=== PATIENT | female | born 1985 | race Caucasian/White ===

== ENCOUNTER 2021-06-27 03:21 | Day surgery (SDC) | payer OTHER, SELFPAY ==
[2021-06-19 15:45] VITALS: BMI 54.8
--- NOTE | 2021-06-19 15:54 | PC.NURSE ---
Report to the Outpatient Waiting Room, entrance under the green pavilion located off [facility], at time 1030 on date 06/27/21. OR Time: 1230. - You and your visitor will be asked a series of questions to screen for COVID 19 for your protection. - A mask is required within the hospital. - Only one visitor is allowed at this time. Patient visitors will be guided where to wait when not with patient. Preoperative COVID Testing Requirements: No COVID Test needed if: (proof is required; if not received patient will have Rapid Test prior to entry) - Patient has received COVID Vaccine at least 14 days prior to procedure date or - Patient has positive COVID test result within last 90 days of surgery date. COVID Test needed if above criteria is not met If not COVID vaccinated a COVID test must be conducted within 72 hours of surgery and patient is asked to isolate self from time of testing until procedure. You will go to the [facility] for your COVID testing. The [facility] is located at the corner of [address] [facility]. You will only be called if COVID results are positive and your surgeon may reschedule your elective surgery date. Patients may have clear liquids (water, carbonated beverages, clear teas, apple juice) until 3 hours prior to surgery with a maximum of 20 ounces. - No food from midnight until time of surgery - Infants may have breast milk until 4 hours before surgery, infant formula 6 hours prior to surgery. - Children will be allowed to drink immediately following surgery. If applicable, please bring a bottle or sippy cup to assist with drinking. Juice, water, soda, and popsicles are readily available. For infants on formula, please bring formula the day of surgery. Pacifiers are allowed. Take the following medications with a SIP of water the morning of surgery: ESCITALOPRAM, LABETALOL Medications to discontinue per physician: N/A Date to take last dose: N/A Please no make-up, nail malay, hairspray, perfume, deodorant, or body powder the day of surgery. No jewelry (including any body piercings) or valuables the day of surgery, leave them at home. Please take a shower or bath the night before, or the morning of, surgery with an antibacterial soap. Wear comfortable, loose fitting clothing. Children are encouraged to wear pajamas. - Jewelry must be removed prior to entering the operating room. Rings and piercings that are not removed may be cut off. - The hospital will not accept responsibility for valuables. - Please leave all valuables, including medications, at home the day of surgery. If you are going home after surgery, a licensed patient transportation driver must drive you home. - NO public transportation without another adult. - We recommend that an adult stay with you for 24 hours following discharge. - We also recommend that you do not drive, make important decision, drink alcoholic beverages, or take any drugs that were not prescribed by your health care provider for at least 24 hours after your discharge time. For Pediatric surgeries, we recommend two adults accompany the child home (only one inside the building at this time). Follow any additional instructions given to you from your surgeon. Telephone instructions given to TWIN MATTA and asked if any additional questions and then verbalized understanding. Patient advised to call surgeon office or pre surgery nurse liaison [phone] if any additional questions.
--- NOTE | 2021-06-24 12:54 | PM.IMHP ---
H&P: HPI History of Present Illness Date/Time: 06/24/21 12:54 36-year-old female admitted for hysteroscopy/dilatation curettage. She has had a long history of heavy excessive bleeding when trying to conceive. Cells IV painful bleeding pretty much every day and spotting on other days. Risks and benefits reviewed including but not exclusive of , aspiration pneumonia, bleeding, transfusion, perforation injury to bowel, bladder, ureters, or other internal organs with need for open laparotomy. She received the ACOG handout entitled hysteroscopy as well as dilatation curettage. She had all questions answered and asked to proceed Chief Complaint: Excessive heavy bleeding Review of Systems Review of Systems: All systems reviewed & are unremarkable except as noted in HPI and below PMFSH Family History Family History Mother Patient's mother is in good health Father Patient's father is in good health Social History Social History Smoking status: Never smoker Alcohol intake: never Substance use: never Substance use type: does not use Living arrangements: with family Spiritual care concerns: No Meds Home Medications and Allergies Home Medications Medication Instructions Recorded Confirmed Type escitalopram oxalate 20 mg PO BID 06/19/21 06/19/21 History hydrochlorothiazide 25 mg PO DAILY 06/19/21 06/19/21 History labetalol 300 mg PO BID 06/19/21 06/19/21 History rosuvastatin 20 mg PO DAILY 06/19/21 06/19/21 History Allergies Allergy/AdvReac Type Severity Reaction Status Date / Time No Known Allergies Allergy Verified 06/19/21 15:42 Exam Const: General: no acute distress Eyes: General: appearance normal, both eyes and all related structures Neck: Neck: supple and no JVD Thyroid: thyroid normal Resp: Effort & Inspection: normal respiratory effort Auscultation: clear to auscultation bilaterally Cardio: Rate: regular rate Rhythm: regular rhythm GI: Inspection: non-distended GI Palp: Yes Soft to palpation, No Tenderness to palpation present (GI) and No Guarding due to palpation present (GI) Auscultation: normal bowel sounds : External Female Exam: normal external appearance Speculum Exam - Vagina: normal appearance of the vagina Speculum Exam - Cervix: normal appearance of the cervix Bimanual exam- vagina & uterus: enlarged Bimanual Exam- Adnexa, other: normal adnexae Skin: General skin exam: no rashes or lesions noted Extrem: General: normal to inspection and no edema Psych: Mental Status: mental status grossly normal Affect: normal affect Assessment and Plan Additional Plan Impression: Bleeding refractory to medical therapy Plan: Hysteroscopy/dilatation curettage
--- NOTE | 2021-06-27 07:13 | WPDHPUPDATE1 ---
History and Physical Update Update Date/Time: 06/27/21 07:13 History and Physical has been reviewed, including an updated exam of the patient. There are NO changes in the patient's condition. Risks, benefits, and alternatives have been discussed and questions answered. Patient agrees to proceed with procedure.
[2021-06-27] MEDS: ACETAMINOPHEN 500 MG TABLET 1000 MG PO (11:04)
--- NOTE | 2021-06-27 11:17 | WPDANESEPPF ---
Anes - Initial Pre Proc Eval Procedure: Operation Date: 06/27/21 12:30 Proposed Procedures p Hysteroscopy Dilation and Curettage - Roland Law MD Date/Time: 06/27/21 11:17 Surgeon: Roland Law MD Pre Op Diagnosis: irregular bleeding Patient Data Age: 36 Gender: F Height: 1.68 m Weight: 154.22 kg Allergies Allergy/AdvReac Type Severity Reaction Status Date / Time No Known Allergies Allergy Verified 06/27/21 10:42 Home Medications Medication Instructions Recorded Confirmed Type escitalopram oxalate 20 mg PO BID 06/19/21 06/27/21 History hydrochlorothiazide 25 mg PO DAILY 06/19/21 06/27/21 History labetalol 300 mg PO BID 06/19/21 06/27/21 History rosuvastatin 20 mg PO DAILY 06/19/21 06/27/21 History hydrocodone-acetaminophen 1 tablet PO Q4H PRN #20 tablet 06/27/21 Rx Patient hx anesthesia problems: none Family hx anesthesia problems: none Results Review: All pre-operative results and documents have been reviewed as part of the pre-operative evaluation. [facility] Past Medical History Medical History (Updated 06/27/21 @ 11:18 by Lavell Nguyen MD) Abnormal uterine bleeding Anxiety HTN (hypertension) Hyperlipidemia Morbid obesity with BMI of 50.0-59.9, adult Family History Family History Mother Patient's mother is in good health Father Patient's father is in good health Social History Social History Smoking status: Never smoker Alcohol intake: never Substance use: never Substance use type: does not use Living arrangements: with family Spiritual care concerns: No Anes - Eval Final PreProcedure Day of Procedure 06/27/21 11:17 Patient weight: morbidly obese Heart: regular rate and rhythm Lungs: clear to auscultation and normal air movement Airway: Mallampati scale class II Neurological: alert and oriented Last oral intake: >/= 8 hours ASA classification: III Emergent: no Anesthetic plan: proceed Anesthesia type and monitoring: general GIVS and LMA Results Review: All pre-operative results and documents have been reviewed as part of the pre-operative evaluation. Informed Consent: The patient's anesthetic plan and its attendant risks and benefits were discussed with the patient/family/POA. Questions were solicited and answers provided to the satisfaction of the patient/family/POA.
[2021-06-27] MEDS: LACTATED RINGERS 1,000 ML 30 ML IV CONT ×2 (11:20→14:12)
[2021-06-27 11:22] LABS: Hematocrit 38.9 % (37.0-47.0); Hemoglobin 12.8 g/dL (12.0-15.0)
[2021-06-27 11:31] LABS: Anion Gap 10 mmol/L (8-16); Blood Urea Nitrogen 15 mg/dL (7-17); Calcium 9.2 mg/dL (8.4-10.2); Carbon Dioxide 29 mmol/L (22-30); Chloride 100 mmol/L (98-107); Estimated CRCL calculation 116 ml/min; Estimated Glomerular Filt Rate > 60; Glucose 102 mg/dL (65-110); Potassium 4.1 mmol/L (3.4-5.0); Sodium 139 mmol/L (137-145)
[2021-06-27 11:45] VITALS: BP 125/70; PULSE 88; TEMP 36.5; O2SAT 95
[2021-06-27 13:37] VITALS: BP 163/80; PULSE 85; RESP 18; O2SAT 93
--- NOTE | 2021-06-27 13:38 | W.PM.PROC2 ---
Procedure Note - Detailed Date of Procedure 06/27/21 Pre-op Diagnosis irregular bleeding Post-op Diagnosis other (Multiple uterine polyps) Procedure Performed Hysteroscopy/dilatation curettage/polypectomy Surgeon Roland Law MD Anesthesia MAC and local Indications This is a 36-year-old female with a thickened endometrium and irregular heavy bleeding refractory to medical therapy Findings Multiple uterine 5 polyps were seen. The head fairly bland and benign appearance. Description of Procedure The patient was prepped draped in sterile fashion placed in dorsal lithotomy position. Under excellent IV sedation weighted speculum placed in posterior fornix vagina. Anterior lip of the cervix grasped with single-tooth tenaculum and the uterus sounded to 9cm. Serial dilatation with fragmented dilators were performed followed by passage of 5mm visualizing hysteroscope using normal saline as visualizing medium. Several polyps were seen. Passing the polyp forceps these were removed piecemeal. The uterus was then scraped over the entire 360? until good grating sound was heard. When no further tissue removed the instruments were removed. All sponge, needle, instrument counts were correct. There were no immediate complication was Estimated Blood Loss 5 Drains No Packing No Pathology yes Complications No immediate complications Condition stable Disposition PACU
[2021-06-27] MEDS: fentaNYL CITRATE INJ (*CRX) 100 MCG/2 ML VIAL 25 MCG IV PUSH ×4 (13:43→13:59)
[2021-06-27] MEDS: KETOROLAC 30 MG/ML VIAL (*BKC) IV PUSH (13:56)
[2021-06-27 14:05] VITALS: BP 150/72; PULSE 86; RESP 18; O2SAT 93
[2021-06-27] MEDS: oxyCODONE HCL (*CRX) 5 MG TAB IR PO (14:23)
[2021-06-27 14:35] VITALS: BP 139/66; PULSE 72; RESP 18
[2021-06-27 15:05] VITALS: BP 146/72; PULSE 72; RESP 16
== END 2021-06-27 15:10 | disposition home or self-care (01) ==
PROVIDERS: PCP Physician Assistant; Visit Provider Obstetrics & Gynecology
PROC: 0U5B8ZZ Destruction of Endometrium, Via Natural or Artificial Opening Endoscopic (ICD-10-PCS; CPT 58563; principal; 2021-06-27 12:30)
DX: N85.02 Endometrial intraepithelial neoplasia [EIN] (principal); I10 Essential (primary) hypertension; E78.5 Hyperlipidemia, unspecified; F41.9 Anxiety disorder, unspecified; E66.01 Morbid (severe) obesity due to excess calories; Z68.43 Body mass index [BMI] 50.0-59.9, adult
CPT/HCPCS: 58558; 36415; 80048; 85014; 85018; 88305; A9270; J1885; J2250; J2704; J3010; J7030; J7120

== ENCOUNTER 2021-07-08 11:21 | Outpatient (CLI) | payer OTHER, SELFPAY ==
--- NOTE | 2021-07-08 11:30 | ECG_ITS ---
Measurements Intervals [place] Rate: 75 P: 14 ME: 139 QRS: 40 QRSD: 99 T: 40 QT: 385 QTc: 432 Interpretive Statements SINUS RHYTHM BORDERLINE T WAVE ABNORMALITY- ANTERIOR LEADS BASELINE ARTIFACT- I, III, AVR, AVL, AVF BORDERLINE ECG Electronically Signed On 07-08-2021 12:49:12 SALICYLIC ACID BLENDER by Destin Arizmendi D.O.
[2021-07-08 11:55] LABS: Basophils Percent Auto 0.4 % (0.2-1.2); Eosinophils Absolute Auto 0.3 K/mm3 (0-0.3); Eosinophils Percent Auto 3.2 % (0-4.4); Hematocrit 38.9 % (37.0-47.0); Hemoglobin 12.7 g/dL (12.0-15.0); Immature Granulocyte Absolute 0.16 K/mm3 (0.00-0.031); Immature Granulocyte Percent A 1.7 % (0-0.5); Lymphocytes Absolute Auto 2.18 K/mm3 (0.9-3.2); Lymphocytes Percent Auto 23.7 % (18.3-44.2); Mean Corpuscular HGB Conc 32.6 g/dl (32-36); Mean Corpuscular Hemoglobin 30.8 pg (26-34); Mean Corpuscular Volume 94.4 fl (80-100); Mean Platelet Volume 9.2 fl (7.4-10.4); Monocytes Absolute Auto 0.4 K/mm3 (0.1-0.6); Monocytes Percent Auto 4.4 % (2.6-8.5); Neutrophils Absolute Auto 6.1 K/mm3 (1.3-6.7); Neutrophils Percent Auto 66.6 % (45.5-73.1); Platelet Count Result 258 k/mm3 (150-375); Red Blood Count 4.12 M/mm3 (4.2-5.4); Red Cell Distribution Width 12.9 % (11.5-14.5); White Blood Count 9.2 K/mm3 (4.5-10.0)
== END 2021-07-08 11:22 | disposition home or self-care (01) ==
LOC: ANHSURGERY 11:25
PROVIDERS: PCP Physician Assistant; Visit Provider Obstetrics & Gynecology
DX: Z01.818 Encounter for other preprocedural examination (principal); N93.9 Abnormal uterine and vaginal bleeding, unspecified
CPT/HCPCS: 36415; 85025; 86850; 86900; 86901; 93005

== ENCOUNTER 2021-07-15 01:25 | Day surgery (SDC) | payer OTHER, SELFPAY ==
[2021-07-07 14:39] VITALS: BMI 54.9
--- NOTE | 2021-07-07 14:50 | PC.NURSE ---
Report to the Outpatient Waiting Room, entrance under the green pavilion located off [facility], at time 10:00 on date 07/15/21. OR Time: 12:00. - You and your visitor will be asked a series of questions to screen for COVID 19 for your protection. - A mask is required within the hospital. - Only one visitor is allowed at this time. Patient visitors will be guided where to wait when not with patient. Preoperative COVID Testing Requirements: No COVID Test needed if: (proof is required; if not received patient will have Rapid Test prior to entry) - Patient has received COVID Vaccine at least 14 days prior to procedure date or - Patient has positive COVID test result within last 90 days of surgery date. COVID Test needed if above criteria is not met If not COVID vaccinated a COVID test must be conducted within 72 hours of surgery and patient is asked to isolate self from time of testing until procedure. You will go to the [facility] for your COVID testing. The [facility] is located at the corner of [address] [facility]. You will only be called if COVID results are positive and your surgeon may reschedule your elective surgery date. Patients may have clear liquids (water, carbonated beverages, clear teas, apple juice) until 3 hours prior to surgery with a maximum of 20 ounces. - No food from midnight until time of surgery - Infants may have breast milk until 4 hours before surgery, infant formula 6 hours prior to surgery. - Children will be allowed to drink immediately following surgery. If applicable, please bring a bottle or sippy cup to assist with drinking. Juice, water, soda, and popsicles are readily available. For infants on formula, please bring formula the day of surgery. Pacifiers are allowed. Take the following medications with a SIP of water the morning of surgery: LABETALOL, ESCITALOPRAM Medications to discontinue per physician: N/A Date to take last dose: N/A Please no make-up, nail korean, hairspray, perfume, deodorant, or body powder the day of surgery. No jewelry (including any body piercings) or valuables the day of surgery, leave them at home. Please take a shower or bath the night before, or the morning of, surgery with an antibacterial soap. Wear comfortable, loose fitting clothing. Children are encouraged to wear pajamas. - Jewelry must be removed prior to entering the operating room. Rings and piercings that are not removed may be cut off. - The hospital will not accept responsibility for valuables. - Please leave all valuables, including medications, at home the day of surgery. If you are going home after surgery, a licensed p d driver must drive you home. - NO public transportation without another adult. - We recommend that an adult stay with you for 24 hours following discharge. - We also recommend that you do not drive, make important decision, drink alcoholic beverages, or take any drugs that were not prescribed by your health care provider for at least 24 hours after your discharge time. For Pediatric surgeries, we recommend two adults accompany the child home (only one inside the building at this time). Follow any additional instructions given to you from your surgeon. Telephone instructions given to TWIN MATTA and asked if any additional questions and then verbalized understanding. Patient advised to call surgeon office or pre surgery nurse liaison [phone] if any additional questions.
--- NOTE | 2021-07-14 12:01 | PM.IMHP ---
H&P: HPI History of Present Illness Date/Time: 07/14/21 12:01 36-year-old 0 admitted for robotic hysterectomy and bilateral salpingectomy secondary to the excessive bleeding in a patient with complex atypical hyperplasia. She declined attempt at treatment with hormones. She understands this will make her permanently infertile. Risks and benefits of the procedure reviewed in full Chief Complaint: heavy bleeding and complex atypical hyperplasia of Review of Systems Review of Systems: All systems reviewed & are unremarkable except as noted in HPI and below PMFSH Past Medical History Medical History Abnormal uterine bleeding Anxiety HTN (hypertension) Hyperlipidemia Morbid obesity with BMI of 50.0-59.9, adult Family History Family History Mother Patient's mother is in good health Father Patient's father is in good health Social History Social History Smoking status: Never smoker Alcohol intake: never Substance use: never Substance use type: does not use Spiritual care concerns: No Meds Home Medications and Allergies Home Medications Medication Instructions Recorded Confirmed Type escitalopram oxalate 20 mg PO BID 06/19/21 07/07/21 History hydrochlorothiazide 25 mg PO DAILY 06/19/21 07/07/21 History labetalol 300 mg PO BID 06/19/21 07/07/21 History rosuvastatin 20 mg PO DAILY 06/19/21 07/07/21 History hydrocodone-acetaminophen 1 tablet PO Q4H PRN #20 tablet 06/27/21 07/07/21 Rx Allergies Allergy/AdvReac Type Severity Reaction Status Date / Time No Known Allergies Allergy Verified 07/07/21 14:38 Exam Const: General: no acute distress Eyes: General: appearance normal, both eyes and all related structures Neck: Neck: supple and no JVD Thyroid: thyroid normal Resp: Effort & Inspection: normal respiratory effort Auscultation: clear to auscultation bilaterally Cardio: Rate: regular rate Rhythm: regular rhythm GI: Inspection: non-distended GI Palp: Yes Soft to palpation, No Tenderness to palpation present (GI) and No Guarding due to palpation present (GI) Auscultation: normal bowel sounds : External Female Exam: normal external appearance Speculum Exam - Vagina: normal appearance of the vagina Speculum Exam - Cervix: normal appearance of the cervix Bimanual exam- vagina & uterus: enlarged Bimanual Exam- Adnexa, other: normal adnexae ( difficult secondary to large pannus) Skin: General skin exam: no rashes or lesions noted Extrem: General: normal to inspection and no edema Psych: Mental Status: mental status grossly normal Affect: normal affect Assessment and Plan Additional Plan impression: Complex atypical hyperplasia Plan: Total robotic hysterectomy and bilateral salpingectomy
[2021-07-15] VITALS (12 sets, daily range): BP systolic 106–154; BP diastolic 66–90; PULSE 72–95; RESP 16–23; TEMP 36.4; O2SAT 90–100
--- NOTE | ~2021-07-15 | CT_ITS ---
EXAMINATION: CTA chest PE protocol EXAM DATE: 07/16/2021 12:23 INDICATION: Pain with deep breathing, rule out PE. TECHNIQUE: Spiral CTA of the chest (pulmonary arteries) was performed with 100 cc Omnipaque 350 intr avenous contrast injection. Images were acquired during the pulmonary arterial phase. Coronal maxi mum intensity projection 3D-reconstructions were created by the technologist on dedicated workstation . Axial, coronal and sagittal reformatted images were reviewed. The dose-length product (DLP) for t his examination was 910.51 mGy-cm. The exposure was tailored according to patient size (auto mA exp osure control), and iterative reconstruction (ASIR) was used as additional dose reduction technique. There is no prior study for comparison. FINDINGS: Pulmonary arteries are well opacified and without intraluminal filling defects. No thora cic aortic dissection. There is multi segmental atelectasis in the dependent aspects of the right up per and lower lobes, segmental atelectasis in the left lower lobe. Can't exclude superimposed pneumon ia but the homogeneous enhancement and volume loss is consistent with atelectasis. There are no pleural or pericardial effusions. Tracheobronchial tree is patent. There is no media stinal, hilar or axillary lymphadenopathy. There is no pneumothorax. Heart normal in size. No e vidence of coronary arterial calcification. Steatosis There is thoracic spondylosis without osteob lastic or osteolytic lesions identified. IMPRESSION: Multi segmental right lung, segmental left lower lobe atelectasis. Superimposed pneumonia difficult to entirely exclude. Consider incentive spirometry. Hepatic steatosis. Reviewed, dictated and finalized at location A. SERVICE CLERK IMPRESSION: Multi segmental right lung, segmental left lower lobe atelectasis. Superimposed pneumonia difficult to entirely exclude. Consider incentive beba metry. Hepatic steatosis.
--- NOTE | 2021-07-15 06:58 | WPDHPUPDATE1 ---
History and Physical Update Update Date/Time: 07/15/21 06:58 History and Physical has been reviewed, including an updated exam of the patient. There are NO changes in the patient's condition. Risks, benefits, and alternatives have been discussed and questions answered. Patient agrees to proceed with procedure.
--- NOTE | 2021-07-15 10:55 | P.PNAN_ITS ---
Anes - Initial Pre Proc Eval Procedure: Operation Date: 07/15/21 12:00 Proposed Procedures p Robotic Assisted Total Vaginal Hysterectomy with Bilateral Salpingectomy - Roland Law MD Date/Time: 07/15/21 10:55 Surgeon: Roland Law MD Pre Op Diagnosis: Heavy Bleeding, Endometrial Complex Hyperplasia Patient Data Age: 36 Gender: F Height: 1.68 m Weight: 154.4 kg Allergies Allergy/AdvReac Type Severity Reaction Status Date / Time No Known Allergies Allergy Verified 07/07/21 14:38 Home Medications Medication Instructions Recorded Confirmed Type escitalopram oxalate 20 mg PO BID 06/19/21 07/07/21 History hydrochlorothiazide 25 mg PO DAILY 06/19/21 07/07/21 History labetalol 300 mg PO BID 06/19/21 07/07/21 History rosuvastatin 20 mg PO DAILY 06/19/21 07/07/21 History hydrocodone-acetaminophen 1 tablet PO Q4H PRN #20 tablet 06/27/21 07/07/21 Rx hydrocodone-acetaminophen 1 tablet PO Q4H PRN #30 tablet 07/15/21 Rx Patient hx anesthesia problems: none Family hx anesthesia problems: none Results Review: All pre-operative results and documents have been reviewed as part of the pre-operative evaluation. [facility] Past Medical History Medical History Abnormal uterine bleeding Anxiety HTN (hypertension) Hyperlipidemia Morbid obesity with BMI of 50.0-59.9, adult Family History Family History Mother Patient's mother is in good health Father Patient's father is in good health Social History Social History Smoking status: Never smoker Alcohol intake: never Substance use: never Substance use type: does not use Living arrangements: with family Spiritual care concerns: No Anes - Eval Final PreProcedure Day of Procedure 07/15/21 10:55 Patient weight: super morbidly obese Heart: regular rate and rhythm Lungs: clear to auscultation and normal air movement Airway: Mallampati scale class II Neurological: alert and oriented Last oral intake: >/= 8 hours ASA classification: III Emergent: no Anesthetic plan: proceed Anesthesia type and monitoring: general ETT and standard monitoring Results Review: All pre-operative results and documents have been reviewed as part of the pre-operative evaluation. Informed Consent: The patient's anesthetic plan and its attendant risks and benefits were discussed with the patient/family/POA. Questions were solicited and answers provided to the satisfaction of the patient/family/POA.
[2021-07-15] MEDS: LACTATED RINGERS 1,000 ML 30 ML IV CONT ×3 (11:00→15:07)
[2021-07-15] MEDS: ACETAMINOPHEN 500 MG TABLET 1000 MG PO (11:00)
[2021-07-15] MEDS: KETOROLAC 15 MG/ML VIAL (*BKC) IV PUSH (11:10)
[2021-07-15] MEDS: ceFAZolin 2 GM/D5W 50 ML 2 GM/50 ML BAG IVPB (11:58)
--- NOTE | 2021-07-15 13:06 | SUR.OPER ---
EBL 25ML
--- NOTE | 2021-07-15 13:08 | P.OP_ITS ---
Procedure Note - Detailed Date of Procedure 07/15/21 Pre-op Diagnosis Heavy Bleeding, Endometrial Complex Hyperplasia Post-op Diagnosis same Procedure Performed Robotic total vaginal hysterectomy and bilateral salpingectomy Surgeon Roland Law MD Anesthesia general Indications 36-year-old female with hysteroscopic i proven complex atypical hyperplasia and heavy bleeding Findings Heart shaped uterus. Polycystic ovaries. Small fallopian tubes. Description of Procedure The patient was prepped draped in the normal sterile fashion placed in the dorsal lithotomy position. Under excellent general trach anesthesia weighted speculum placed in posterior fornix vagina. Anterior lip of the cervix grasped with a single-tooth tenaculum. Uterus sounded to 11cm. Serial dilatation with fragmented dilators performed followed by passage of the 10. FLORIAN and they 3. Cold cup. Sixteen Japanese catheter was then placed in the bladder and drained of clear urine. The weighted speculum was removed and the gloves were changed. A supraumbilical incision made the Veress needle passed in the abdomen. The abdomen filled with CO2 gas to 15 mercury. The 8mm trocar advanced in the abdomen. The downside visualized no injury seen. Gas reattached and patient placed in Trendelenburg. Left and right lateral quadrant incisions were made 8mm trocars advanced under direct visualization assuring no injury. A right upper quadrant incision made the 8mm trocar advanced under direct visualization assuring no injury. The robot was docked. Attention was turned to the residential youth counselor. The left round ligament grasped, burned, cut. Anteriorly a bladder flap was formed by sharply dissecting the peritoneum and reflecting the bladder caudally away from the cervix and uterus to the opposite round ligament was clamped, burned, cut. Next the fallopian tube was sharply dissected away from the ovary complex and left attached to its entrance at the uterus. This was repeated on to the right fallopian tube. Next the left utero-ovarian ligament was skeletonized conserving the left ovary. This was clamped, burned, cut and brought down the lateral edge of the the of the uterus to the previously cut round ligament. This was repeated on the contralateral side grasping burning and cutting the utero-ovarian ligament and meeting up with the previously cut round ligament on the right. The left cardinal and broad ligaments were skeletonized. They were clamped, burned, cut and brought down the lateral edge of the uterus until the large uterine vessels could be seen. These were individually clamped, burned, cut. In like fashion the cardinal broad ligaments on the right were serially skeletonized. These were clamped, burned, cut and brought down the lateral edge. This was brought down to the level of the uterine vessels which were then individually clamped, burned, cut. Blanching of the uterus was seen. A colpotomy incision was made the cervix uterus and tubes removed through the vagina. Blood loss estimated at25cc. The vagina was closed with continuous running 0V lock from lateral edge to lateral edge back to the midline. Irrigation undertaken to clear and hemostasis was assured. The robot was undocked. The gas removed from the abdomen. The trocars removed and the incisions closed with 4 Monocryl and glue. The patient was awakened. She was taken to the recovery in satisfactory condition. All sponge, needle, instrument counts were correct. There were no immediate complications Estimated Blood Loss 25 Drains No Packing No Pathology yes Complications No immediate complications Condition stable Disposition PACU
[2021-07-15] MEDS: fentaNYL CITRATE INJ (*CRX) 100 MCG/2 ML VIAL 25 MCG IV PUSH ×8 (13:39→14:49)
--- NOTE | 2021-07-15 14:31 | SUR.PHASEI ---
PT STARTING TO RELAX. ABLE TO REST QUIETLY BRIEFLY IN INTERVALS.
--- NOTE | 2021-07-15 14:49 | SUR.PHASEI ---
PT STILL STATES PAIN /. PT IS ABLE TO RELAX IN INTERVALS DR MYRICK AT BEDSIDE. PT HAS HAD FENTANYL 200MCG IV. NO ORDERS FOR MORE NARCOTICS, DUE TO PT ON O2 3L NC ALREADY. SAO2 91-95%. TORADOL 30MG IV ORDERED X1.
[2021-07-15] MEDS: KETOROLAC 30 MG/ML VIAL (*BKC) IV PUSH (14:56)
--- NOTE | 2021-07-15 15:30 | SUR.PHASEI ---
PT ABLE TO REST QUIETLY MORE FREQUENTLY. C/O CATHETER, ASKING IT TO BE REMOVED. PATENT AND DRAINING CLEAR YELLOW URINE. HOB ELEVATED 30 DEGREES.
--- NOTE | 2021-07-15 15:41 | PC.NURSE ---
This patient, Cathleen Sam, was received from PACU per bed to room 280. Patient/family oriented to unit policies and routines
--- NOTE | 2021-07-15 16:00 | SUR.PHASEI ---
9820; PT STATES ABDOMEN PAIN MODERATE AND TOLERABLE. PAIN COMING FROM CATHETER. CATHETER PATENT AND DRAINING. INFO GIVEN TO EMILY DE LA TORRE RN
[2021-07-15] MEDS: DEXTROSE 5%/LACTATED RINGERS 1,000 ML 125 ML IV CONT (16:16)
[2021-07-15] MEDS: HYDROcodone/acetaminophen (*CRX) 10-325 MG TABLET 1 TAB PO (16:18)
[2021-07-15] MEDS: PROMETHAZINE HCL 25 MG/ML AMPUL 12.5 MG IV PUSH (18:26)
[2021-07-15] MEDS: IBUPROFEN 600 MG TABLET PO (21:02)
[2021-07-15] MEDS: ESCITALOPRAM OXALATE 10 MG TABLET 20 MG PO (21:02)
[2021-07-15] MEDS: DOCUSATE SODIUM 100 MG CAPSULE PO (21:03)
[2021-07-15] MEDS: LABETALOL HCL 100 MG TABLET 300 MG PO (21:03)
[2021-07-15] MEDS: HYDROcodone/acetaminophen (*CRX) 5-325 MG TABLET 1 TAB PO (22:13)
[2021-07-16] VITALS: BP 124/76; PULSE 81; RESP 24; TEMP 36.4; O2SAT 93
[2021-07-16] MEDS: IBUPROFEN 600 MG TABLET PO ×2 (04:25→13:54)
[2021-07-16] MEDS: HYDROcodone/acetaminophen (*CRX) 5-325 MG TABLET 1 TAB PO ×2 (04:25→07:22)
[2021-07-16 04:30] VITALS: BP 146/67; PULSE 86; RESP 24; TEMP 36.5; O2SAT 90
[2021-07-16 05:19] LABS: Basophils Percent Auto 0.2 % (0.2-1.2); Eosinophils Percent Auto 0.2 % (0-4.4); Hematocrit 36.8 % (37.0-47.0); Hemoglobin 11.7 g/dL (12.0-15.0); Immature Granulocyte Absolute 0.14 K/mm3 (0.00-0.031); Lymphocytes Absolute Auto 2.06 K/mm3 (0.9-3.2); Lymphocytes Percent Auto 14.1 % (18.3-44.2); Mean Corpuscular HGB Conc 31.8 g/dl (32-36); Mean Corpuscular Hemoglobin 30.7 pg (26-34); Mean Corpuscular Volume 96.6 fl (80-100); Mean Platelet Volume 9.4 fl (7.4-10.4); Monocytes Absolute Auto 0.9 K/mm3 (0.1-0.6); Neutrophils Absolute Auto 11.5 K/mm3 (1.3-6.7); Neutrophils Percent Auto 78.5 % (45.5-73.1); Platelet Count Result 253 k/mm3 (150-375); Red Blood Count 3.81 M/mm3 (4.2-5.4); Red Cell Distribution Width 12.8 % (11.5-14.5); White Blood Count 14.6 K/mm3 (4.5-10.0)
--- NOTE | 2021-07-16 07:08 | PM.GYNPNOP ---
FUR REPAIRER - A/P Postoperative Procedures: Procedures Operation Date: 07/15/21 12:00 Actual Procedure Side Surgeon p Robotic Assisted Total Vaginal Hysterectomy with Bilateral Salpingectomy Bilateral Roland Law MD Postoperative day: 1 Postoperative status: doing well Postoperative plan: routine post-op care, see orders and discharge Time Spent With Patient Time: Total time spent is greater than 50% in coordination of care (as documented) at patient's floor/unit and/or counseling patient: Time with patient: less than 15 minutes FUR REPAIRER- PN:Subj Post-Op Subjective Date/time seen: 07/16/21 07:08 Subjective: patient reports feeling better and patient has no complaints Review of Systems Review of Systems: All systems reviewed & are unremarkable except as noted in HPI and below Exam Const: General: no acute distress Eyes: General: appearance normal, both eyes and all related structures Neck: Neck: supple and no JVD Thyroid: thyroid normal Resp: Effort & Inspection: normal respiratory effort Auscultation: clear to auscultation bilaterally Cardio: Rate: regular rate Rhythm: regular rhythm GI: Inspection: non-distended GI Palp: Yes Soft to palpation, No Tenderness to palpation present (GI) and No Guarding due to palpation present (GI) Auscultation: normal bowel sounds : General: Yes bladder normal to palpation External Female Exam: normal external appearance Speculum Exam - Vagina: normal vaginal discharge and No vaginal bleeding Speculum Exam - Cervix: nontender Bimanual exam- vagina & uterus: bladder normal to palpation and No Cervical tenderness present OB/external & speculum: No vaginal bleeding Skin: General skin exam: no rashes or lesions noted Extrem: General: normal to inspection and no edema Psych: Mental Status: mental status grossly normal Affect: normal affect FUR REPAIRER - PN: Obj Data Vital Signs Vital Signs: Vital Signs - 24 hr 07/15/21 11:00 07/15/21 13:22 07/15/21 13:35 Temperature 97.5 F L 97.6 F Pulse Rate 78 84 91 Respiratory Rate 18 18 21 H Blood Pressure 135/84 148/74 H 106/88 Pulse Oximetry 100 90 96 07/15/21 13:50 07/15/21 14:15 07/15/21 14:30 Temperature Pulse Rate 90 87 83 Respiratory Rate 23 H 16 17 Blood Pressure 131/81 128/86 125/66 Pulse Oximetry 95 95 94 07/15/21 14:45 07/15/21 15:00 07/15/21 15:15 Temperature Pulse Rate 90 88 84 Respiratory Rate 18 18 18 Blood Pressure 139/87 145/80 H 133/84 Pulse Oximetry 94 94 95 07/15/21 15:50 07/15/21 20:00 07/15/21 21:03 Temperature 97.6 F Pulse Rate 72 92 95 Respiratory Rate 20 22 H Blood Pressure 154/90 H 148/84 H Pulse Oximetry 94 95 07/16/21 00:00 07/16/21 04:30 Temperature 97.6 F 97.7 F Pulse Rate 81 86 Respiratory Rate 24 H 24 H Blood Pressure 124/76 146/67 H Pulse Oximetry 93 90 Intake/Output Intake/Output: Intake & Output 07/13/21 07/14/21 07/15/21 07/16/21 23:59 23:59 23:59 23:59 Intake Total 1650 600 Output Total 600 1300 Balance 1050 -700 Meds/Results Medications: Active Medications Generic Name Dose Route Start Last Admin Trade Name Freq PRN Reason Stop Dose Admin Hydrocodone Bitart/Acetaminophen 1 tab 07/15/21 15:31 07/16/21 04:25 Hydrocodone/Acetaminophen (*Crx) 5-325 Mg Tablet PO 1 tab Q3H PRN Administration Pain Rated 5 or Less Hydrocodone Bitart/Acetaminophen 1 tab 07/15/21 15:31 07/15/21 16:18 Hydrocodone/Acetaminophen (*Crx) 10-325 Mg Tablet PO 1 tab Q3H PRN Administration Pain Rated 6 or Greater Docusate Sodium 100 mg 07/15/21 17:00 07/15/21 21:03 Docusate Sodium 100 Mg Capsule PO 100 mg BID ZACK Administration Enoxaparin Sodium 40 mg 07/16/21 09:00 Enoxaparin 40 Mg/0.4 Ml Syringe SUB-Q DAILY ZACK Escitalopram Oxalate 20 mg 07/15/21 21:00 07/15/21 21:02 Escitalopram Oxalate 10 Mg Tablet PO 20 mg Q12H ZACK Administration Dextrose/Lactated Ringer's 1,000 mls @ 125 mls/hr 07/15/21
--- NOTE | 2021-07-16 07:09 | PM.DS ---
DS: Admitting Diagnosis Discharge Date 07/16/2021 Admitting Diagnosis Complex atypical hyperplasia excessive heavy bleeding DS: Summary Hospital Course Hospital Course: Patient was admitted for robotic total hysterectomy bilateral salpingectomy. The procedure was unremarkable. Please see the operative report for full details. Her hospital course was unremarkable. She remained afebrile. She was up, voiding without difficulty, ambulating, generally without complaints. Time Spent with Patient Time attestation: Total time spent providing and/or coordinating discharge services: Exam Const: General: no acute distress Eyes: General: appearance normal, both eyes and all related structures Neck: Neck: supple and no JVD Thyroid: thyroid normal Resp: Effort & Inspection: normal respiratory effort Auscultation: clear to auscultation bilaterally Cardio: Rate: regular rate Rhythm: regular rhythm GI: Inspection: non-distended GI Palp: Yes Soft to palpation, No Tenderness to palpation present (GI) and No Guarding due to palpation present (GI) Auscultation: normal bowel sounds : General: Yes bladder normal to palpation External Female Exam: normal external appearance Speculum Exam - Vagina: normal vaginal discharge and No vaginal bleeding Speculum Exam - Cervix: nontender Bimanual exam- vagina & uterus: bladder normal to palpation and No Cervical tenderness present OB/external & speculum: No vaginal bleeding Skin: General skin exam: no rashes or lesions noted Extrem: General: normal to inspection and no edema Psych: Mental Status: mental status grossly normal Affect: normal affect DS: Data Data Completed and Pending Pending studies at discharge: Pending at discharge 07/15/21 12:50 Surgical [PTH] Routine Labs on day of discharge: Labs from last 24 hours 07/16/21 04:28 WBC 14.6 H RBC 3.81 L Hgb 11.7 L Hct 36.8 L MCV 96.6 MCH 30.7 MCHC 31.8 L RDW 12.8 Plt Count 253 MPV 9.4 Immature Gran % (Auto) 1.0 H Neut % (Auto) 78.5 H Lymph % (Auto) 14.1 L [place] % (Auto) 6.0 Eos % (Auto) 0.2 Baso % (Auto) 0.2 Lymph # (Auto) 2.06 [place] # (Auto) 0.9 H Eos # (Auto) 0.0 Baso # (Auto) 0.0 Abs Immat Gran (auto) 0.14 H Absolute Neuts (auto) 11.5 H Absolute Nucleated RBC 0.0 Nucleated RBC % 0.0 Discharge Plan Discharge Patient Disposition: Home, Self-Care Stand Alone Forms: General Discharge Instructions Follow-up/Referrals: Roland Law MD [Physician] - Discharge Medications: New hydrocodone-acetaminophen 5-325 mg tablet 1 tablet PO Q4H PRN (Reason: pain) Qty: 30 RF: 0 No Action hydrochlorothiazide 25 mg Tablet 25 mg PO DAILY RF: 0 labetalol 300 mg Tablet 300 mg PO BID RF: 0 escitalopram oxalate 20 mg Tablet 20 mg PO BID RF: 0 rosuvastatin 20 mg Tablet 20 mg PO DAILY RF: 0 hydrocodone-acetaminophen 5-325 mg tablet 1 tablet PO Q4H PRN (Reason: pain) Qty: 20 RF: 0
[2021-07-16] MEDS: DOCUSATE SODIUM 100 MG CAPSULE PO (07:22)
[2021-07-16] MEDS: ESCITALOPRAM OXALATE 10 MG TABLET 20 MG PO (07:23)
[2021-07-16] MEDS: LABETALOL HCL 100 MG TABLET 300 MG PO (07:23)
[2021-07-16] MEDS: ENOXAPARIN 40 MG/0.4 ML SYRINGE SUB-Q (07:23)
[2021-07-16 07:35] VITALS: BP 130/80; PULSE 84; RESP 18; TEMP 36.9; O2SAT 91
[2021-07-16] MEDS: HYDROcodone/acetaminophen (*CRX) 10-325 MG TABLET 1 TAB PO ×2 (09:56→13:54)
--- NOTE | 2021-07-16 10:12 | WPDANESPN ---
Anes - Prog Note Post-Op Date/Time: 07/16/21 10:12 Cardiovascular status: normal Respiratory status: normal Airway patency: baseline Mental status: baseline Post-Op hydration status: normal Vital Signs: Last Vital Signs Temp 36.9 C 07/16/21 07:35 Pulse 84 07/16/21 07:35 Resp 18 07/16/21 07:35 BP 130/80 07/16/21 07:35 Pulse Ox 91 07/16/21 07:35 Pain Score (VAS): 0 I/O: Intake & Output 07/15/21 07/16/21 07/16/21 23:59 07:59 15:59 Intake Total 550 600 Output Total 600 1300 250 Balance -50 -700 -250 Laboratory Tests 07/16/21 04:28 07/16/21 04:28 WBC 14.6 H RBC 3.81 L Hgb 11.7 L Hct 36.8 L MCV 96.6 MCH 30.7 MCHC 31.8 L RDW 12.8 Plt Count 253 MPV 9.4 Immature Gran % (Auto) 1.0 H Neut % (Auto) 78.5 H Lymph % (Auto) 14.1 L [place] % (Auto) 6.0 Eos % (Auto) 0.2 Baso % (Auto) 0.2 Lymph # (Auto) 2.06 [place] # (Auto) 0.9 H Eos # (Auto) 0.0 Baso # (Auto) 0.0 Abs Immat Gran (auto) 0.14 H Absolute Neuts (auto) 11.5 H Absolute Nucleated RBC 0.0 Nucleated RBC % 0.0 Post-procedural complaints: none Patient Feedback: Patient satisfied with anesthetic care.
[2021-07-16 11:15] VITALS: O2SAT 92
[2021-07-16 12:03] LABS: Alanine Aminotransferase 27 U/L (4-35); Albumin Level 3.9 g/dL (3.5-5.1); Alkaline Phosphatase 70 U/L (38-126); Anion Gap 7 mmol/L (8-16); Aspartate Amino Transferase 23 U/L (14-36); Bilirubin,Total 0.4 mg/dL (0.2-1.3); Blood Urea Nitrogen 15 mg/dL (7-17); Calcium 8.6 mg/dL (8.4-10.2); Carbon Dioxide 31 mmol/L (22-30); Chloride 99 mmol/L (98-107); Estimated CRCL calculation 107 ml/min; Estimated Glomerular Filt Rate > 60; Glucose 136 mg/dL (65-110); Potassium 3.7 mmol/L (3.4-5.0); Sodium 137 mmol/L (137-145)
[2021-07-16 12:13] VITALS: BP 99/66; PULSE 84; RESP 18; TEMP 36.7; O2SAT 92
--- NOTE | 2021-07-16 13:58 | PC.NURSE ---
Patient and her significant other were thoroughly educated on the use of the incentive spirometer and the importance of getting up and ambulating frequently. They both verbalized understanding.
== END 2021-07-16 13:58 | disposition home or self-care (01) ==
LOC: ANHSURGERY 09:33 → ANHOB2 15:56
PROVIDERS: PCP Physician Assistant; Visit Provider Obstetrics & Gynecology
PROC: (CPT 58552; principal; 2021-07-15 12:00)
DX: N85.02 Endometrial intraepithelial neoplasia [EIN] (principal); N92.0 Excessive and frequent menstruation with regular cycle; N83.8 Other noninflammatory disorders of ovary, fallopian tube and broad ligament; N83.202 Unspecified ovarian cyst, left side; N83.201 Unspecified ovarian cyst, right side; I10 Essential (primary) hypertension; E78.5 Hyperlipidemia, unspecified; F41.9 Anxiety disorder, unspecified; E66.01 Morbid (severe) obesity due to excess calories; Z68.43 Body mass index [BMI] 50.0-59.9, adult
CPT/HCPCS: 58552; S2900; 36415; 71275; 80053; 85025; 86850; 86900; 86901; 88307; 93005; 99199; A9270; J0690; J1100; J1650; J1885; J2250; J2405; J2550; J2704; J2710; J3010; J7030; J7120; J7121; Q9967

== ENCOUNTER 2021-07-19 20:50 | Emergency (ER) | payer OTHER, SELFPAY ==
[2021-07-19 21:06] VITALS: BP 149/84; PULSE 84; RESP 20; TEMP 36.5; O2SAT 98
--- NOTE | 2021-07-19 21:26 | PC.NURSE ---
Pt reports she does not want to wait. verbalized understanding to return at any time she feels the need. ambulatory out of dept. with steady, even, unassisted gait.
== END 2021-07-20 04:03 | disposition left against medical advice (07) ==
LOC: ANHED 21:35
PROVIDERS: PCP Physician Assistant
DX: Z53.21 Procedure and treatment not carried out due to patient leaving prior to being seen by health care provider (principal)
CPT/HCPCS: 99199

== ENCOUNTER → 2022-05-11 11:59 | Outpatient (CLI) | payer OTHER, SELFPAY ==
--- NOTE | ~2022-05-11 | MR_ITS ---
EXAMINATION: MR knee RT wo con DATE: 05/11/2022 12:58 INDICATION: Patellar dislocation at the right knee TECHNIQUE: Magnetic resonance imaging (MRI) of the right knee was performed without intravenous contr ast. Sequences included coronal PD-weighted FSE, coronal PD-weighted FS FSE, sagittal T2-weighted FS E, sagittal PD-weighted FS FSE and axial PD weighted fat saturated FSE. COMPARISON: None. FINDINGS: Evaluation mildly limited by motion artifact to some degree on all of the fat-saturated sequences inc luding a few repeated sequences. Medial compartment: Medial meniscus is normal. Articular cartilage is normal. Lateral compartment: Lateral meniscus is normal. Articular cartilage is normal. Patellofemoral compartment: And 12 mm lateral patellar subluxation and mild lateral patellar tilt. The tibial tubercle 2 trochlea r groove distance of 2.0 cm also abnormal increased . This likely chronic as there appears be a centr al/near full-thickness cartilage loss along the majority of the lateral patellar facet and involving the lateral aspect of the lateral trochlea and remodeling of the articular cortices at the lateral pa tellar facet and lateral trochlea. Cartilage at the medial aspect of the patellofemoral compartment i s relatively preserved. There are also moderate sized patellar and trochlear marginal osteophytes. Ligaments and tendons: Anterior and posterior cruciate ligaments are normal. The medial collateral ligament and fibular jenna ateral ligament complex are normal. The extensor mechanism is normal. The visualized medial and later al hamstring tendons as well as the iliotibial band are normal. Fluid: Small right knee joint effusion. 6 mm loose osteochondral body in the recess dependent the posterolat eral aspect of the medial compartment. No other loose osteochondral bodies identified. Osseous/other: No fracture or pathologic marrow replacing process. Osseous excrescences with cortical and medullary continuity along the anteromedial margin of the proximal tibial metaphysis consistent with a sessile osteochondroma with very thin nearly indiscernible cartilage cap. IMPRESSION: 1. 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 2. Sessile osteochondroma along the anteromedial aspect of the proximal tibial metaphysis. Reviewed, dictated and finalized at location A. IMPRESSION: 1. 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 2. Sessile osteochondroma along the anteromedial aspect of the proximal tibial metaphysis.
== END ==
PROVIDERS: PCP Family Medicine
DX: S83.004A Unspecified dislocation of right patella, initial encounter (principal); X58.XXXA Exposure to other specified factors, initial encounter; M17.11 Unilateral primary osteoarthritis, right knee
CPT/HCPCS: 73721